=== PATIENT | female | born 1980 | race Caucasian/White ===

== ENCOUNTER → 2025-10-02 | Outpatient (CLI) | payer MEDICAID, SELFPAY ==
--- NOTE | 2025-10-02 10:30 | XR_ITS ---
Examination: Transvaginal ultrasound of the pelvis, complete Technique: Transvaginal sonographic images pelvis performed using saldaña scale imaging Exam date and time: October 02, 2025, 1104 hours INDICATIONS: Pelvic pain beginning several months ago endometriosis surgery FINDINGS: Uterus 9.6 cm Uterine body mass 3.1 x 4.2 x 2.9 cm Endometrial stripe 0.9 cm Right ovary 6.1 cm arterial flow, multiple cysts, the largest 26 x 23 mm Absent left ovary IMPRESSION: Urinary fibroid degeneration 3.1 x 4.2 x 2.9 cm Recommend 6-month follow-up transvaginal pelvic sonography.
--- NOTE | 2025-10-02 10:30 | XR_ITS ---
Examination: Pelvic ultrasound, transabdominal, complete Technique: Transabdominal ultrasound of the pelvis performed using grayscale imaging Date and time of exam: October 02, 2025, 1049 hours INDICATIONS: Pelvic pain several months, diagnosis endometriosis left ovary removal 2022. FINDINGS: Uterus 8.6 cm uterine body mass is 4.3 x 4.5 cm, 3.0 x 3.0 cm Endometrial stripe 16 mm Right ovary 5.8 x 6.1 cm arterial flow multiple cysts, the largest 3.1 x 3.0 cm Left ovary absent IMPRESSION: Uterine areas of fibroid degeneration, recommend 6-month follow-up transvaginal pelvic sonography
== END | disposition home or self-care (01) ==
PROVIDERS: PCP Nurse Practitioner Family; Referring Provider Nurse Practitioner Family; Visit Provider Nurse Practitioner Family
DX: D25.9 Leiomyoma of uterus, unspecified (principal)
CPT/HCPCS: 76830; 76856